=== PATIENT | male | born 1950 | race Caucasian/White ===

== ENCOUNTER → 2017-04-21 | Outpatient (CLI) | payer OTHER ==
[~2017-04-21] MED LIST: DOXYCYCLINE HY100 M1 PO; PROAIR HFA8.5 GM INH
--- NOTE | ~2017-04-21 | CT55 ---
[facility] A Service of [facility] & [facility] RADIOLOGY TEXT RESULTS PATIENT: PAULINA HOLLEY LOCATION: [facility] : 52 UNIT #: [id number] AGE: [address]: Marleen Duarte MD SEX: M ORDER DR: [id number] [facility]. [place], [place] [address] [id number] O MR#: [id number] Acc #: [id number] NAME: PAULINA HOLLEY : 1950 SEX: M STUDY DATE/TIME: 04/21/2017 12:23 UNIT: [facility] ROOM: STUDY DESCRIPTION: CT Chest W Con Attending Physician: Rogers Duarte M.D. Referring Physician: Rogers Duarte M.D. Ordering Physician: Rogers Duarte M.D. Primary Care Physician: Km Wright M.D. MEDICAL IMAGING REPORT This report is preliminary unless electronic signature is present EXAM CT chest. INDICATION Prostate cancer. Observation for metastatic disease. TECHNIQUE CT of the thorax utilizing 100 mL Isovue-370 IV contrast. Coronal and sagittal reconstructions were obtained. This CT exam was performed with one or more of the following radiation dose reduction techniques: automatic exposure control, adjustment of mA and/or kV according to patient size, and iterative reconstruction. COMPARISON Concurrent CT abdomen and pelvis 04/21/17 and bone scan dated 04/21/17. FINDINGS No thoracic aortic aneurysm or dissection. No enlarged mediastinal or hilar lymph nodes. No pericardial or pleural effusion. There is some mild emphysema in the lung apices. This is predominately paraseptal emphysema. There is a small 3 mm noncalcified pulmonary nodule in the left upper lobe on image 22. No focal consolidation. Central airways are patent. No enlarged mediastinal or hilar lymph nodes. No pericardial or pleural effusion. Thoracic aorta is normal in caliber. Please refer to the separately dictated report for details on the abdomen and pelvis. No acute osseous abnormalities. IMPRESSION 1. Small 3 mm noncalcified pulmonary nodule in the left upper lobe is likely benign. This probably represents a benign joint alignment. STS. [facility] A Service of [facility] & [facility] RADIOLOGY TEXT RESULTS PATIENT: PAULINA HOLLEY LOCATION: [facility] #: [id number] : [birth year] UNIT #: [id number] AGE: [address]: Marleen Duarte MD SEX: M ORDER DR: Given the risk factors, consider a 12-month follow up CT scan. Dictated by... Los Silva M.D. THIS IS AN ELECTRONICALLY VERIFIED REPORT Los Silva M.D. at 04/22/2017 9:12 AM VANESSA/renee TD: 04/21/2017 18:07 JOB #: [id number] MEDICAL IMAGING REPORT Page 1 of 1 COPY
--- NOTE | ~2017-04-21 | NM8 ---
[facility] A Service of [place] & [facility] RADIOLOGY TEXT RESULTS PATIENT: PAULINA HOLLEY LOCATION: [facility] : 52 UNIT #: [id number] AGE: [address]: Marleen Duarte MD SEX: M ORDER DR: [id number] [facility] [address] [facility]. [place], [place] [address] [id number] O MR#: [id number] Acc #: [id number] NAME: PAULINA HOLLEY : 1950 SEX: M STUDY DATE/TIME: 04/21/2017 13:54 UNIT: [facility] ROOM: STUDY DESCRIPTION: IA Bone or Joint Whole Body Attending Physician: Rogers Duarte M.D. Referring Physician: Rogers Duarte M.D. Ordering Physician: Rogers Duarte M.D. Primary Care Physician: Km Wright M.D. MEDICAL IMAGING REPORT This report is preliminary unless electronic signature is present EXAM Whole-body bone scan. HISTORY A 66-year-old male recently diagnosed with prostate cancer, elevated PSA. COMPARISON CT chest, abdomen and pelvis 04/21/17. Right shoulder films, 03/13/17. FINDINGS Whole-body and selected spot images were performed of the axial and appendicular skeleton following intravenous administration of 27.3 mCi technetium 99m MDP. Examination demonstrates increased uptake in the lower lumbar spine at the L4-5 level. This is most prominent on the posterior acquisitions, and is felt to correspond to facet arthropathy as noted on the patient's CT scan. No abnormal uptake identified within the long bones, pelvis, ribs or skull to suggest osseous metastatic disease. Small amount of increased uptake is seen in the central mandible, could be related to underlying periodontal disease or prior dental surgery. Bilateral renal activity and normal bladder activity noted. IMPRESSION 1. No bone scan findings to suggest osseous metastatic disease. 2. Symmetric increased uptake in the lower lumbar spine felt to correspond to bilateral L4-5 facet arthropathy as noted on the patient's recent CT. Dictated by... Albino Ahumada M.D. THIS IS AN ELECTRONICALLY VERIFIED REPORT Albino Ahumada M.D. at 04/21/2017 8:29 PM [facility] A Service of [facility] RADIOLOGY TEXT RESULTS PATIENT: PAULINA HOLLEY LOCATION: [facility] #: [id number] : [birth year] UNIT #: [id number] AGE: [address]: Marleen Duarte MD SEX: M ORDER DR: Nilay TD: 04/21/2017 18:10 JOB #: [id number] MEDICAL IMAGING REPORT Page 1 of 1 COPY
--- NOTE | ~2017-04-21 | CT2 ---
[facility] A Service of [facility] RADIOLOGY TEXT RESULTS PATIENT: PAULINA HOLLEY LOCATION: [facility] : 52 UNIT #: [id number] AGE: [address]: Marleen Duarte MD SEX: M ORDER DR: [id number] [facility]. [place], [place] [address] [id number] O MR#: [id number] Acc #: [id number] NAME: PAULINA HOLLEY : 1950 SEX: M STUDY DATE/TIME: 04/21/2017 12:23 UNIT: [facility] ROOM: STUDY DESCRIPTION: CT Abd and Pelv W Cont Attending Physician: Rogers Duarte M.D. Referring Physician: Rogers Duarte M.D. Ordering Physician: Rogers Duatre M.D. Primary Care Physician: Km Wright M.D. MEDICAL IMAGING REPORT This report is preliminary unless electronic signature is present EXAM CT abdomen and pelvis with contrast INDICATIONS Prostate cancer. Staging. Observation for metastatic disease. PROCEDURE Contrast-enhanced CT of the abdomen and pelvis. This CT exam was performed with one or more of the following radiation dose reduction techniques: automatic control, adjustment of mA and/or kV according to patient size, and iterative reconstruction. COMPARISON None FINDINGS ABDOMEN WITH CONTRAST: A 4 mm hypodensity left lobe of the liver indeterminate too small to characterize but probably a small benign cyst. The spleen kidneys adrenal glands, pancreas gallbladder unremarkable. The bowel loops are nondilated. Moderate colonic stool. Appendix normal. PELVIS WITH CONTRAST: No pelvic mass or fluid. No aggressive appearing bone lesion. IMPRESSION 1. No acute findings in the abdomen or pelvis. 2. No evidence for abdominal or pelvic metastatic disease. 3. Prostate gland measures 5.4 cm which is mildly enlarged. No CT evidence for direct extension or pelvic adenopathy. 4. Patient is scheduled for a whole body bone scan on the same day as this study. Refer to that study for the possibility of any CT occult bone lesion. [facility] A Service of [facility] RADIOLOGY TEXT RESULTS PATIENT: PAULINA HOLLEY LOCATION: [facility] #: [id number] : 52 UNIT #: [id number] AGE: [address]: Marleen Duarte MD SEX: M ORDER DR: Dictated by... Holger Navas M.D. THIS IS AN ELECTRONICALLY VERIFIED REPORT Holger Navas M.D. at 04/22/2017 2:01 PM EECristin/rnr TD: 04/21/2017 19:21 JOB #: [id number] MEDICAL IMAGING REPORT Page 1 of 1 COPY
[2017-04-21 20:31] LABS: POC - CREATININE 0.85 mg/dL (0.64-1.27); POC - GFR >60.0 mL/min (>60)
== END | disposition home or self-care (01) ==
LOC: CNUC 09:52
PROVIDERS: Urology
DX: C61 Malignant neoplasm of prostate (principal); R91.1 Solitary pulmonary nodule
CPT/HCPCS: 71260; 74177; 78306; 82565; A9503; Q9967